=== PATIENT | female | born 1965 | race Hispanic/Latino ===

== ENCOUNTER 2024-08-02 13:45 | Emergency (ER) | payer SELFPAY ==
[~2024-08-02] VITALS: Ht 152.4 cm; Wt 54.0 kg
[2024-08-02 13:59] VITALS: BP 149/78
[2024-08-02] MEDS ORDERED: MORPHINE SULFATE 4 MG/ML VIAL IV ONE (14:05)
[2024-08-02] MEDS ORDERED: ONDANSETRON HCl 4 MG/2 ML SDV IV ONE (14:05)
[2024-08-02] MEDS ORDERED: SODIUM CHLORIDE 0.9% 1,000 ML IV ONE (14:05)
[2024-08-02 14:22] LABS: BASO% 0.8 % (0-3); EOS% 0.5 % (0-8); HEMATOCRIT 37.5 % (37.0-47.0); HEMOGLOBIN 12.1 g/dl (12.0-16.0); IMMATURE GRANULOCYTES 0.1 % (0.0-5.0); LYMPH% 16.8 % (15-41); MEAN CELL VOLUME 89.5 fL CALC (80.0-100.0); MEAN CORPUSCULAR HGB 28.9 pG CALC (26.0-32.0); MEAN CORPUSCULAR HGB CONC 32.3 g/dL CAL (32.0-36.0); MONO% 2.5 % (2-13); NEUT# 8.14 thou/uL (2.00-7.15); NEUT% 79.3 % (42-76); RED BLOOD COUNT 4.19 mill/uL (4.20-5.60); RED CELL DISTRI WIDTH 13.4 % (11.5-15.5)
[2024-08-02 14:43] LABS: ALBUMIN 4.2 g/dL (3.2-5.0); BILIRUBIN, TOTAL 1.1 mg/dL (0.02-1.3); CREATININE 0.6 mg/dL (0.5-1.0); POTASSIUM 3.3 mmol/l (3.5-5.1); TOTAL PROTEIN 7.4 g/dL (6.3-8.2)
[2024-08-02] MEDS ORDERED: KETOROLAC TROMETHAMINE 15 MG/ML SDV IV ONE (15:00)
[2024-08-02] MEDS ORDERED: INSULIN REGULAR (HUMAN) 100 UNIT/ML INJ IV ONE (15:05)
[2024-08-02] MEDS ORDERED: HYDROmorphone HCL 2 MG/AMP IV ONE (15:40)
[2024-08-02] MEDS ORDERED: LEVSIN0.125 M1 PO (16:44)
[2024-08-02] MEDS ORDERED: ZOFRAN4 MG/TAB PO (16:44)
[2024-08-02 16:54] VITALS: BP 149/78
== END 2024-08-02 17:30 | disposition home or self-care (01) | DRG 392 ==
LOC: ED 13:45
PROVIDERS: Family Medicine
DX: R10.84 Generalized abdominal pain (principal); E11.9 Type 2 diabetes mellitus without complications; E66.9 Obesity, unspecified
CPT/HCPCS: J1171; J1885; J2405; Q9967